=== PATIENT | female | born 1940 | race Caucasian/White ===

== ENCOUNTER 2016-11-04 20:12 | Emergency (ER) | payer MEDICARE, OTHER ==
[~2016-11-04 20:12] MED LIST: ALDACTONE25 M1 PO; ASPIR 8181 M1 PO; ASPIR 8181 MG; CALTRATE-600/VI1 TAB; CELEBREX200 M1 PO; CELEBREX200 MG; COLACE100 M1 PO; DETROL LA4 M1 PO; DIOVAN HCT 1601 EAC1 PO; DIOVAN HCT 80-11 TAB; DIOVAN80 M1 PO; GLUCOSAMINE; HYDROCODON-ACE1 EA16 PO; IRON50 MG; LASIX40 M1 PO; LIPITOR10 MG; LIPITOR20 M1 PO; LYRICA50 MG/CAP PO; NORCO 5-325 TA1 EACH PO; PANTOPRAZOLE SO40 M3 PO; PLAVIX75 M1 PO; POTASSIUM CHLO10 ME1 PO; PRILOSEC20 M1 PO; PROAIR HFA8.5 GM IH; SYNTHROID50 MC1 PO; TOPROL XL50 M1 PO; TRADJENTA5 M1 PO; ZOLOFT25 M1 PO; [UNRECOGNIZED DRUG - OTHER]; [UNRECOGNIZED DRUG - OTHER]
== END 2016-11-04 21:10 ==
LOC: EDMED 20:12
PROC: 0HQMXZZ Repair Right Foot Skin, External Approach (ICD-10-PCS; principal; 2016-11-04)
DX: S91.311A Laceration without foreign body, right foot, initial encounter (principal); I25.10 Atherosclerotic heart disease of native coronary artery without angina pectoris; Z87.891 Personal history of nicotine dependence; W23.1XXA Caught, crushed, jammed, or pinched between stationary objects, initial encounter; Y92.019 Unspecified place in single-family (private) house as the place of occurrence of the external cause